=== PATIENT | female | born 1990 | race Two or more races ===

== ENCOUNTER 2019-09-27 21:52 | Inpatient (IN) | payer OTHER ==
[~2019-09-27] VITALS: Ht 165.1 cm; Wt 85.0 kg
[2019-09-27 22:47] VITALS: BP 133/86
[2019-09-27] MEDS ORDERED: PREN1TAB60 PO (23:32)
[2019-09-27] MEDS ORDERED: Iron HOMEMEDPO (23:32)
[2019-09-27] MEDS ORDERED: MISOPROSTOL 25 MCG TABLET ONE (23:42)
[2019-09-27] MEDS ORDERED: LIDOCAINE 1%, 20ML ONE (23:43)
[2019-09-27] MEDS: D5%-LACTATED RINGERS 1,000 ML IV SCH (23:43)
[2019-09-27] MEDS ORDERED: MISOPROSTOL 200 MCG TABLET ONE (23:43)
[2019-09-27] MEDS ORDERED: OXYTOCIN 30U/ 0.9% NaCL 500ML 500 ML IV ONE (23:43)
[2019-09-27] MEDS ORDERED: NEWBORN KIT ONE (23:43)
[2019-09-27] MEDS ORDERED: OXYTOCIN 30U/ 0.9% NaCL 500ML 500 ML ONE (23:43)
[2019-09-28] MEDS ORDERED: TERBUTALINE 1 MG/ML, 1ML SQ PRN
[2019-09-28] MEDS ORDERED: FENTANYL PF 100 MCG/2ML IV PRN
[2019-09-28] MEDS ORDERED: CALCIUM CARBONATE 500 MG TAB.CHEW PO PRN
[2019-09-28] MEDS ORDERED: ONDANSETRON 2MG/ML, 2ML IVPush PRN
[2019-09-28] MEDS ORDERED: TERBUTALINE 1 MG/ML, 1ML IVPush PRN
[2019-09-28 00:25] LABS: BASOPHILS # (AUTO) 0.05 x10^3/uL (0-0.1); BASOPHILS % (AUTO) 1 % (0-1); EOSINOPHILS # (AUTO) 0.14 x10^3/uL (0-0.4); EOSINOPHILS % (AUTO) 1 % (1-7); LYMPHOCYTES # (AUTO) 2.17 x10^3/uL (1-3.4); LYMPHOCYTES % (AUTO) 19 % (22-44); MD NO; MEAN CORPUSCULAR HEMOGLOBIN 28.8 pg (27.0-34.8); MEAN CORPUSCULAR HGB CONC 33.2 g/dL (32.4-35.8); MEAN CORPUSCULAR VOLUME 86.9 fL (80-100); MEAN PLATELET VOLUME 9.4 fL (7.4-10.4); MONOCYTES # (AUTO) 0.67 x10^3/uL (0.2-0.8); MONOCYTES % (AUTO) 6 % (2-9); NEUTROPHILS # (AUTO) 8.23 x10^3/uL (1.8-6.8); NEUTROPHILS % (AUTO) 73 % (42-75); PLATELET COUNT 243 x10^3/uL (130-400); RED BLOOD COUNT 3.86 x10^6/uL (3.82-5.3); RED CELL DISTRIBUTION WIDTH 15.3 % (9.6-15.2)
[2019-09-28] MEDS: MISOPROSTOL 25 MCG TABLET VG PRN ×3 (00:25→08:27)
[2019-09-28] MEDS: LACTATED RINGERS 1,000 ML IV SCH ×3 (00:25→15:43)
[2019-09-28] MEDS ORDERED: MISOPROSTOL 25 MCG TABLET ONE ×2 (04:17→08:23)
[2019-09-28] MEDS: D5%-LACTATED RINGERS 1,000 ML IV SCH (07:43)
[2019-09-28] MEDS ORDERED: FENTANYL PF 100 MCG/2ML ONE ×2 (18:45→20:31)
[2019-09-28] MEDS: FENTANYL PF 100 MCG/2ML IVPush PRN ×2 (18:56→20:35)
[2019-09-28] MEDS ORDERED: FENTANYL/BUPIV./NS/PF 250 ML EPIDCONT SCH (20:52)
[2019-09-28] MEDS ORDERED: NALOXONE 0.4 MG/ML, 1ML IVPush PRN (21:00)
[2019-09-28] MEDS ORDERED: LACTATED RINGERS 1,000 ML IVBOLUS PRN (21:00)
[2019-09-28] MEDS ORDERED: EPHEDRINE 50 MG/ML, 1ML IVPush PRN (21:00)
[2019-09-28] MEDS ORDERED: FENTANYL/BUPIV./NS/PF 250 ML EPIDCONT ONE (21:06)
[2019-09-28] MEDS ORDERED: BUPIVACAINE 0.25% ONE (21:18)
[2019-09-28] MEDS ORDERED: LIDOCAINE 1%, 10ML ONE (21:28)
[2019-09-28] MEDS ORDERED: LACTATED RINGERS 1,000 ML IV SCH (22:00)
[2019-09-29] MEDS: FENTANYL PF 100 MCG/2ML IVPush PRN (03:13)
[2019-09-29] MEDS: OXYTOCIN 30U/ 0.9% NaCL 500ML 500 ML IV SCH ×2 (05:49→17:20)
[2019-09-29] MEDS ORDERED: METHYLERGONOVINE 0.2 MG/ML IM PRN (06:00)
[2019-09-29] MEDS ORDERED: MISOPROSTOL 200 MCG TABLET PR PRN (06:00)
[2019-09-29] MEDS ORDERED: SIMETHICONE 80 MG CHEW TAB PO PRN (06:00)
[2019-09-29] MEDS ORDERED: CARBOPROST TROMETHAMINE 250 MCG/ML, 1ML IM PRN (06:00)
[2019-09-29] MEDS ORDERED: HYDROcodone/APAP 5/325 TABLET PO PRN ×2 (06:00)
[2019-09-29] MEDS ORDERED: ACETAMINOPHEN 325 MG TABLET PO PRN (06:00)
[2019-09-29] MEDS ORDERED: CALCIUM CARBONATE 500 MG TAB.CHEW PO PRN (06:00)
[2019-09-29] MEDS ORDERED: MAGNESIUM HYDROXIDE 8%, 30ML UDC PO PRN (06:00)
[2019-09-29] MEDS ORDERED: ONDANSETRON 2MG/ML, 2ML IV PRN (06:00)
[2019-09-29] MEDS ORDERED: OXYTOCIN 30U/ 0.9% NaCL 500ML 500 ML ONE (06:14)
[2019-09-29 08:05] VITALS: BP 130/84
[2019-09-29] MEDS: DOCUSATE 100 MG CAPSULE PO PRN ×2 (08:33→22:01)
[2019-09-29] MEDS: IBUPROFEN 600 MG TABLET PO PRN ×3 (08:33→22:01)
[2019-09-29] MEDS: PRENATAL VIT/IRON/FA 1 EACH TABLET PO SCH (08:33)
[2019-09-29 12:28] VITALS: BP 134/87
[2019-09-29 13:49] LABS: MEAN CORPUSCULAR HEMOGLOBIN 28.3 pg (27.0-34.8); MEAN CORPUSCULAR HGB CONC 32.4 g/dL (32.4-35.8); MEAN CORPUSCULAR VOLUME 87.4 fL (80-100); MEAN PLATELET VOLUME 9.1 fL (7.4-10.4); PLATELET COUNT 205 x10^3/uL (130-400); RED BLOOD COUNT 3.43 x10^6/uL (3.82-5.3); RED CELL DISTRIBUTION WIDTH 15.9 % (9.6-15.2)
[2019-09-29 14:32] LABS: BASOPHILS % (AUTO) 0 % (0-1); EOSINOPHILS % (AUTO) 0 % (1-7); LYMPHOCYTES # (AUTO) 1.33 x10^3/uL (1-3.4); LYMPHOCYTES % (AUTO) 5 % (22-44); MD SCAN; MONOCYTES # (AUTO) 1.66 x10^3/uL (0.2-0.8); MONOCYTES % (AUTO) 6 % (2-9); NEUTROPHILS # (AUTO) 24.73 x10^3/uL (1.8-6.8); NEUTROPHILS % (AUTO) 89 % (42-75)
[2019-09-29 18:18] VITALS: BP 125/83
[2019-09-29 20:29] VITALS: BP 119/73
[2019-09-30] MEDS: OXYTOCIN 30U/ 0.9% NaCL 500ML 500 ML IV SCH ×2 (01:49→11:49)
[2019-09-30 02:02] VITALS: BP 110/79
[2019-09-30] MEDS: IBUPROFEN 600 MG TABLET PO PRN ×2 (05:28→12:26)
[2019-09-30 08:45] VITALS: BP 105/70
[2019-09-30] MEDS: PRENATAL VIT/IRON/FA 1 EACH TABLET PO SCH (08:46)
[2019-09-30] MEDS: DOCUSATE 100 MG CAPSULE PO PRN (08:46)
[2019-09-30] MEDS ORDERED: IBUP-1222 PO (15:03)
[2019-09-30] MEDS ORDERED: ACET-2065 PO (15:05)
[2019-09-30] MEDS ORDERED: DOCU100C33 PO (15:06)
[2019-09-30] MEDS ORDERED: CALC500T29 PO (15:06)
== END 2019-09-30 16:40 | disposition home or self-care (01) | DRG 807 ==
LOC: LDOP 21:52 → LDIP 23:43 → 2NW 09-29 07:48 → EDSTATUS 10-02 21:51
PROVIDERS: ADMIT Obstetrics & Gynecology; ATTEND Obstetrics & Gynecology
PROC: 10E0XZZ Delivery of Products of Conception, External Approach (ICD-10-PCS; principal; 2019-09-28)
PROC: 0HQ9XZZ Repair Perineum Skin, External Approach (ICD-10-PCS; 2019-09-28)
PROC: 10907ZC Drainage of Amniotic Fluid, Therapeutic from Products of Conception, Via Natural or Artificial Opening (ICD-10-PCS; 2019-09-28)
DX: O70.0 First degree perineal laceration during delivery (principal); Z37.0 Single live birth; Z3A.40 40 weeks gestation of pregnancy; Z03.818 Encounter for observation for suspected exposure to other biological agents ruled out
CPT/HCPCS: 36415; J7121; 76815; 84112; 85025; 86592; 86850; 86900; 87635; 89060; G0378; J3010; J7120; Q0114